=== PATIENT | male | born 1955 | race Caucasian/White ===

== ENCOUNTER 2018-01-17 08:55 | Outpatient (CLI) | payer OTHER, SELFPAY ==
[2018-01-18 10:36] LABS: PSA, Screening 0.3 ng/ml (0-4.5)
== END 2018-01-17 09:15 ==
LOC: LBN 08:56 → LBO 08:59
PROVIDERS: PCP Internal Medicine; Visit Provider Nurse Practitioner Gerontology
DX: Z12.5 Encounter for screening for malignant neoplasm of prostate (principal)
CPT/HCPCS: 36415; 84153

== ENCOUNTER 2018-06-06 00:17 | Outpatient (CLI) | payer OTHER, SELFPAY ==
--- NOTE | 2018-06-06 07:19 | DI.US_ITS ---
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 Rainey carried out prostate biopsies. The prostatic volume is [address] Rainey's procedure report for further information.
--- NOTE | 2018-06-06 13:10 | PROST_PTH ---
PATIENT: UNRULY LOPEZ LOC: [facility] U#:[id number] AGE/SX: 62/M ROOM: RE06/06/[address]: William Rainey MD : [id number] BED: DIS: 06/06/2018 SPEC #: [id number] RECD: 06/06/18 17:24 STATUS: [facility] #: [id number] SHANKAR: 06/06/18 13:[address]: William Rainey DEPT: Surgical Specimen RECD BY: Mora Serna ENTERED: 06/06/18 17:29 SP TYPE: PROST OTHR DR: Karl Haas Tissues: 1 - PROSTATE NEEDLE BIOPSY 2 - PROSTATE NEEDLE BIOPSY 3 - PROSTATE NEEDLE BIOPSY 4 - PROSTATE NEEDLE BIOPSY 5 - PROSTATE NEEDLE BIOPSY 6 - PROSTATE NEEDLE BIOPSY 7 - PROSTATE NEEDLE BIOPSY 8 - PROSTATE NEEDLE BIOPSY 9 - PROSTATE NEEDLE BIOPSY 10 - PROSTATE NEEDLE BIOPSY 11 - PROSTATE NEEDLE BIOPSY 12 - PROSTATE NEEDLE BIOPSY Procedures: GROSS AND MICRO LEVEL 4 Comments: [id number]
--- NOTE | 2018-06-06 14:45 | ROE_ITS ---
DATE OF PROCEDURE: June 06, 2018 PREOPERATIVE DIAGNOSIS: Abnormal digital rectal exam. POSTOPERATIVE DIAGNOSIS: Same with pathology pending. PROCEDURE: Ultrasound-guided biopsy of the prostate. SURGEON: William Rainey M.D. ANESTHESIA: Local. COMPLICATIONS: None. ESTIMATED BLOOD LOSS: Minimal. HISTORY: This is a 62-year-old gentleman who has a strong family history of adenocarcinoma of the pr ostate. He was found to have some firmness on the left side of his prostate when he had a digital re ctal exam. His PSA is very low at 0.3 ng/mL. He presents for ultrasound-guided biopsy of the prosta te. PROCEDURE: The patient was brought to the Radiology Suite on 06/06/18. After obtaining informed cons ent, he was placed in the left lateral position. 2% Xylocaine jelly was instilled rectally to help a s a local anesthetic. Transrectal imaging of the prostate was then performed and the prostate volume was calculated at 9 cc 's. The peripheral zone appeared relatively normal with no hypoechoic areas. The transition zone was rat her small with no real impingement on the peripheral zone or on the bladder. A periprostatic nerve block was then performed using 1% Xylocaine. A total of twelve laterally-direc felix biopsies were then taken and sent to Pathology for permanent section. The patient tolerated this procedure well with no complications. cc: Pham Ball N.P.
== END 2018-06-06 00:37 ==
PROVIDERS: PCP Internal Medicine; Visit Provider Urology
DX: N40.2 Nodular prostate without lower urinary tract symptoms (principal); N40.0 Benign prostatic hyperplasia without lower urinary tract symptoms
CPT/HCPCS: 55700; 76942; 88305